=== PATIENT | male | born 1940 | race Hispanic/Latino ===

== ENCOUNTER 2018-01-26 09:34 | Inpatient (IN) | payer MEDICARE ==
[2018-01-26] VITALS (23 sets, daily range): BP systolic 88–155; BP diastolic 56–111
[~2018-01-26] VITALS: Ht 167.6 cm; Wt 78.9 kg
[~2018-01-26 09:34] MED LIST: ALPR2TAB7 PO; ATEN50TA PO; CARB1TAB20 PO; CLOPIDOGREL; CYAN100099 PO; ESOM40CA PO; MONT10TA24 PO; PEPTO BISMAL; PREG100C PO; SAW450CA7 PO; TERB250T51 PO; VESCEPA; [UNRECOGNIZED DRUG - OTHER]; [UNRECOGNIZED DRUG - OTHER]; benzonatate; donepezil; duloxetine; fluconazole; hydrocodone; loratadine; meloxicam; paroxetine; rena vite; tamsulosin; vitamin d3
[2018-01-26] MEDS ORDERED: IPRATROPIUM/ALBUTEROL SULFATE 3 ML SOLUTION IH ONE ×3 (09:45→12:02)
[2018-01-26 10:16] LABS: BASOPHILS % (AUTO) 0.2 % (0.0-5.0); HEMATOCRIT 45.8 % (42-54); LYMPHOCYTES % (AUTO) 5.9 % (21.0-51.0); MEAN CORPUSCULAR HEMOGLOBIN 29.6 pg (27.0-33.0); MEAN CORPUSCULAR HGB CONC 33.5 g/dL (32.0-36.0); MEAN CORPUSCULAR VOLUME 88.3 fL (79-99); MONOCYTES % (AUTO) 4.4 % (3.0-13.0); NEUTROPHILS % (AUTO) 89.5 % (40.0-77.0); PLATELET COUNT (AUTO) 290 K/uL (130-400); RED BLOOD CELL COUNT(AUTO) 5.19 MIL/uL (4.50-6.20); RED CELL DISTRIBUTION WIDTH 14.2 % (11.0-15.5); WHITE BLOOD COUNT (AUTO) 18.3 K/uL (4.8-10.8)
[2018-01-26 10:22] LABS: POTASSIUM 4.2 mmol/L (3.5-5.1)
[2018-01-26] MEDS ORDERED: METHYLPREDNISOLONE SOD SUCC 40MG/ML 1ML ONE ×2 (10:25→12:37)
[2018-01-26 10:27] LABS: BILIRUBIN,TOTAL 0.5 mg/dL (0.2-1.0); TOTAL PROTEIN, SERUM 8.5 g/dL (6.0-8.3)
[2018-01-26] MEDS ORDERED: ETOMIDATE 2 MG/ML 10 ML VIAL IVP ONE (12:00)
[2018-01-26] MEDS ORDERED: CEFTRIAXONE SODIUM 1 GM ONE (12:14)
[2018-01-26] MEDS ORDERED: SODIUM CHLORIDE 0.9% 100 ML IV ONE (12:14)
[2018-01-26] MEDS ORDERED: ENOXAPARIN SODIUM 40 MG/0.4 ML SYRINGE SQ ONE (12:37)
[2018-01-26] MEDS ORDERED: SODIUM CHLORIDE 0.9% 500ML 500 ML IV ONE (12:42)
[2018-01-26] MEDS ORDERED: AZITHROMYCIN 500MG+NS 250ML 250 ML IV ONE (12:47)
[2018-01-26] MEDS ORDERED: DEXTROSE 50%-WATER 50 ML DISP.SYRIN IV PRN (14:15)
[2018-01-26] MEDS ORDERED: GLUCAGON 1MG KIT 1 MG ML IM PRN (14:15)
[2018-01-26 14:51] LABS: ABG BASE EXCESS -11.1 mmol/L (-2.0-3.0); ABG HCO3 18.7 mmol/L (21.0-28.0); ABG OXYGEN SATURATION 98.6 % (95.0-99.0); ABG PCO2 57 mmHg (35-48)
[2018-01-26 15:07] LABS: APPEARANCE,URINE Cloudy (CLEAR); BILIRUBIN,URINE Negative (NEGATIVE); COLOR,URINE Yellow (YELLOW); GLUCOSE, URINE (UA) Negative (NEGATIVE); KETONES,URINE Negative (NEGATIVE); LEUKOCYTE ESTERASE ,URINE Small (NEGATIVE); NITRATE,URINE Negative (NEGATIVE); OCCULT BLOOD,URINE Nonhemolyzed Trace (NEGATIVE); PROTEIN,URINE POS 1+ (NEGATIVE)
[2018-01-26 15:32] LABS: BACTERIA,URINE Few /HPF (None Seen); MUCUS,URINE Few LPF (None Seen); RBC,URINE 0-1 /HPF (0-1)
[2018-01-26] MEDS ORDERED: ALBUTEROL SULFATE 0.083% 2.5 MG/3 ML INH IH ONE ×6 (15:37→15:38)
[2018-01-26 15:46] LABS: AMPHET/METH SCREEN,URINE NEGATIVE (NEGATIVE); BARBITURATE SCREEN, URINE NEGATIVE (NEGATIVE); BENZODIAZEPINES SCREEN,URINE POSITIVE (NEGATIVE); CANNABINOID SCREEN,URINE NEGATIVE (NEGATIVE); COCAINE SCREEN,URINE NEGATIVE (NEGATIVE); OPIATE SCREEN,URINE POSITIVE (NEGATIVE); PHENCYCLIDINE SCREEN,URINE NEGATIVE (NEGATIVE)
[2018-01-26] MEDS ORDERED: INSULIN R PO SS1 SQ SCH (16:30)
[2018-01-26] MEDS ORDERED: IPRATROPIUM/ALBUTEROL SULFATE 3 ML SOLUTION IH SCH (18:00)
[2018-01-26] MEDS ORDERED: MORPHINE SULFATE 2 MG/ML 1ML SYG IVP PRN (18:15)
[2018-01-26] MEDS ORDERED: ACETAMINOPHEN 325 MG TAB PO PRN (18:15)
[2018-01-26] MEDS ORDERED: ONDANSETRON HCL 4 MG/2 ML VIAL IVP PRN (18:15)
[2018-01-26] MEDS: IPRATROPIUM/ALBUTEROL SULFATE 3 ML SOLUTION IH SCH ×2 (18:20→21:43)
[2018-01-26] MEDS ORDERED: HYDRALAZINE HCL 20 MG/ML VIAL IV PRN (18:30)
[2018-01-26] MEDS ORDERED: CIPR-279 PO (18:33)
[2018-01-26] MEDS ORDERED: CLOP75TA32 PO (18:33)
[2018-01-26] MEDS ORDERED: CILO50TA PO (18:33)
[2018-01-26] MEDS ORDERED: ALPR-412 PO (18:33)
[2018-01-26] MEDS ORDERED: HYDR-4068 PO (18:33)
[2018-01-26] MEDS ORDERED: ESOM40CA54 PO (18:33)
[2018-01-26] MEDS ORDERED: ATEN25TA PO (18:33)
[2018-01-26] MEDS ORDERED: TAMS0.4C32 PO (18:33)
[2018-01-26] MEDS ORDERED: TRAM50TA4 PO (18:33)
[2018-01-26] MEDS ORDERED: AUD IH (18:33)
[2018-01-26] MEDS ORDERED: MIRA25TA PO (18:33)
[2018-01-26] MEDS ORDERED: SUCR1TAB2 PO (18:33)
[2018-01-26 18:49] LABS: ABG HCO3 20.5 mmol/L (21.0-28.0); ABG OXYGEN SATURATION 94.6 % (95.0-99.0); ABG PCO2 54 mmHg (35-48)
[2018-01-26] MEDS ORDERED: PROPOFOL 1000 MG/100 ML 100 ML IV ONE (18:53)
[2018-01-26] MEDS ORDERED: FENTANYL CITRATE PF 50 MCG/1 ML 2ML VIAL ONE (19:05)
[2018-01-26] MEDS ORDERED: MIDAZOLAM HCL 1 MG/ML 2ML VIAL ONE (19:05)
[2018-01-26] MEDS ORDERED: SODIUM CHLORIDE 0.9% 1000ML 2,000 ML IV ONE (19:06)
[2018-01-26] MEDS ORDERED: NOREPINEPHRINE 4MG/NS 250ML 250 ML IV PRN (19:30)
[2018-01-26 20:43] LABS: ABG HCO3 19.7 mmol/L (21.0-28.0); ABG OXYGEN SATURATION 95.9 % (95.0-99.0); ABG PCO2 44 mmHg (35-48)
[2018-01-26] MEDS ORDERED: INSULIN R PO SS2 SQ SCH (21:00)
[2018-01-26] MEDS: SODIUM CHLORIDE 0.9% 1000ML 1,000 ML IV SCH (21:38)
[2018-01-26] MEDS: CILOSTAZOL 100 MG TAB PO SCH (21:38)
[2018-01-26] MEDS: TAMSULOSIN HCL 0.4 MG CAP.ER.24H PO SCH (21:38)
[2018-01-27] VITALS (35 sets, daily range): BP systolic 83–146; BP diastolic 45–94
[2018-01-27] MEDS: INSULIN HUMULIN R 100 UNIT/ML 3ML SQ SCH ×5 (00:07→23:48)
[2018-01-27] MEDS ORDERED: METHYLPREDNISOLONE SOD SUCC 40MG/ML 1ML ONE (01:29)
[2018-01-27] MEDS: IPRATROPIUM/ALBUTEROL SULFATE 3 ML SOLUTION IH SCH (01:57)
[2018-01-27] MEDS: PROPOFOL 1000 MG/100 ML IV PRN ×2 (02:31→10:32)
[2018-01-27 03:44] LABS: HEMATOCRIT 36.7 % (42-54); MEAN CORPUSCULAR HGB CONC 34.4 g/dL (32.0-36.0); MEAN CORPUSCULAR VOLUME 87.2 fL (79-99); PLATELET COUNT (AUTO) 211 K/uL (130-400); RED CELL DISTRIBUTION WIDTH 14.3 % (11.0-15.5); WHITE BLOOD COUNT (AUTO) 13.7 K/uL (4.8-10.8)
[2018-01-27 04:00] LABS: CREATININE 1.8 mg/dL (0.5-1.5); PHOSPHORUS 2.8 mg/dL (2.5-4.9); POTASSIUM 4.2 mmol/L (3.5-5.1)
[2018-01-27 04:56] LABS: ABG BASE EXCESS -4.8 mmol/L (-2.0-3.0); ABG HCO3 20.3 mmol/L (21.0-28.0); ABG OXYGEN SATURATION 98.5 % (95.0-99.0); ABG PCO2 38 mmHg (35-48)
[2018-01-27 04:58] LABS: BAND NEUTROPHILS % (MANUAL) 19 % (0-2); LYMPHOCYTES % (MANUAL) 11 % (22-44); MAN.DIFF COMMENT-IMPRESSION MANUAL DIFFERENTIAL; MONOCYTES % (MANUAL) 7 % (2-9); SEGMENTED NEUTROPHILS % 63 % (40-70)
[2018-01-27 04:59] LABS: PLATELET MORPHOLOGY COMMENT ADEQUATE
[2018-01-27] MEDS: METHYLPREDNISOLONE SOD SUCC 125MG/2ML VIAL IVP SCH ×5 (06:10→23:32)
[2018-01-27] MEDS: IPRATROPIUM/ALBUTEROL SULFATE 3 ML SOLUTION IH PRN ×4 (06:44→18:20)
[2018-01-27] MEDS: CEFTRIAXONE SODIUM 2 GM VIAL IVP SCH (08:46)
[2018-01-27] MEDS: AZITHROMYCIN 500MG+NS 250ML 250 ML IV SCH (08:47)
[2018-01-27] MEDS: SODIUM CHLORIDE 0.9% 1000ML 1,000 ML IV SCH ×2 (08:50→15:37)
[2018-01-27] MEDS ORDERED: PANTOPRAZOLE SODIUM 40 MG TABLET.DR PO SCH (09:00)
[2018-01-27] MEDS: ATENOLOL 25 MG TABLET PO SCH (09:00)
[2018-01-27] MEDS ORDERED: PANTOPRAZOLE 40 MG/VIAL IVP SCH (09:00)
[2018-01-27] MEDS: CILOSTAZOL 100 MG TAB PO SCH ×2 (09:00→21:15)
[2018-01-27] MEDS: CLOPIDOGREL BISULFATE 75 MG TAB PO SCH (09:00)
[2018-01-27] MEDS: ENOXAPARIN SODIUM 40 MG/0.4 ML SYRINGE SQ SCH (09:08)
[2018-01-27] MEDS ORDERED: ICOS1CAP PO (09:57)
[2018-01-27] MEDS ORDERED: OLOP2.5D5 OP (09:57)
[2018-01-27] MEDS ORDERED: CYCL5.5D OP (09:57)
[2018-01-27] MEDS ORDERED: CEFTRIAXONE SODIUM 1 GM IVP SCH (12:00)
[2018-01-27] MEDS ORDERED: PHARMACY COMMUNICATION MISC SCH (14:30)
[2018-01-27] MEDS ORDERED: SODIUM CHLORIDE 0.9% 1000ML 1,000 ML IV SCH (14:30)
[2018-01-27] MEDS ORDERED: FENTANYL 2500MCG+NS 250ML 250 ML IV PRN (14:45)
[2018-01-27] MEDS: FENTANYL 2500MCG+NS 250ML 250 ML IV PRN (14:57)
[2018-01-27] MEDS: MIDAZOLAM 100MG-0.9% NS 100ML 100 ML IV PRN (15:28)
[2018-01-27] MEDS: TAMSULOSIN HCL 0.4 MG CAP.ER.24H PO SCH (21:00)
[2018-01-28] VITALS (30 sets, daily range): BP systolic 97–146; BP diastolic 43–94
[2018-01-28] MEDS: MIDAZOLAM 100MG-0.9% NS 100ML 100 ML IV PRN (01:43)
[2018-01-28 03:34] LABS: HEMATOCRIT 31.5 % (42-54); MEAN CORPUSCULAR HEMOGLOBIN 30.4 pg (27.0-33.0); MEAN CORPUSCULAR HGB CONC 34.8 g/dL (32.0-36.0); MEAN CORPUSCULAR VOLUME 87.4 fL (79-99); PLATELET COUNT (AUTO) 213 K/uL (130-400); RED CELL DISTRIBUTION WIDTH 14.8 % (11.0-15.5); WHITE BLOOD COUNT (AUTO) 9.4 K/uL (4.8-10.8)
[2018-01-28] MEDS: SODIUM CHLORIDE 0.9% 1000ML 1,000 ML IV SCH (03:39)
[2018-01-28 03:57] LABS: ALBUMIN 2.6 g/dL (3.5-5.0); BILIRUBIN,TOTAL 0.3 mg/dL (0.2-1.0); CREATININE 1.4 mg/dL (0.5-1.5); POTASSIUM 4.2 mmol/L (3.5-5.1); TOTAL PROTEIN, SERUM 5.7 g/dL (6.0-8.3)
[2018-01-28] MEDS: FENTANYL 2500MCG+NS 250ML 250 ML IV PRN (04:12)
[2018-01-28 05:30] LABS: ABG BASE EXCESS -2.3 mmol/L (-2.0-3.0); ABG HCO3 20.6 mmol/L (21.0-28.0); ABG OXYGEN SATURATION 96.9 % (95.0-99.0); ABG PCO2 31 mmHg (35-48)
[2018-01-28] MEDS: METHYLPREDNISOLONE SOD SUCC 125MG/2ML VIAL IVP SCH ×3 (05:41→17:39)
[2018-01-28] MEDS: INSULIN HUMULIN R 100 UNIT/ML 3ML SQ SCH ×4 (06:00→23:57)
[2018-01-28] MEDS: IPRATROPIUM/ALBUTEROL SULFATE 3 ML SOLUTION IH PRN ×3 (07:07→19:06)
[2018-01-28] MEDS: CLOPIDOGREL BISULFATE 75 MG TAB PO SCH (08:20)
[2018-01-28] MEDS: ATENOLOL 25 MG TABLET PO SCH ×2 (08:22→11:00)
[2018-01-28] MEDS: CILOSTAZOL 100 MG TAB PO SCH ×2 (08:23→21:52)
[2018-01-28] MEDS: FAMOTIDINE/PF 20 MG/2 ML VIAL IV SCH (08:29)
[2018-01-28] MEDS: AZITHROMYCIN 500MG+NS 250ML 250 ML IV SCH (08:39)
[2018-01-28] MEDS: CEFTRIAXONE SODIUM 2 GM VIAL IVP SCH (08:41)
[2018-01-28] MEDS: ENOXAPARIN SODIUM 40 MG/0.4 ML SYRINGE SQ SCH (08:46)
[2018-01-28] MEDS ORDERED: PANTOPRAZOLE SODIUM 40 MG TABLET.DR PO SCH (09:00)
[2018-01-28] MEDS ORDERED: PROPOFOL 1000 MG/100 ML IV PRN (11:45)
[2018-01-28 12:13] LABS: ABG BASE EXCESS -4.5 mmol/L (-2.0-3.0); ABG HCO3 21.4 mmol/L (21.0-28.0); ABG OXYGEN SATURATION 94.1 % (95.0-99.0); ABG PCO2 43 mmHg (35-48)
[2018-01-28] MEDS ORDERED: POTASSIUM PHOSPHATE 20 MMOL in SODIUM CHLORIDE 0.9% 250 ML IV SCH (16:30)
[2018-01-28] MEDS: PROPOFOL 1000 MG/100 ML 100 ML IV PRN (21:52)
[2018-01-28] MEDS: TAMSULOSIN HCL 0.4 MG CAP.ER.24H PO SCH (21:52)
[2018-01-29] VITALS (24 sets, daily range): BP systolic 104–160; BP diastolic 44–82
[2018-01-29] MEDS: METHYLPREDNISOLONE SOD SUCC 125MG/2ML VIAL IVP SCH ×5 (00:05→23:12)
[2018-01-29 03:55] LABS: BASOPHILS % (AUTO) 0.1 % (0.0-5.0); LYMPHOCYTES % (AUTO) 7.6 % (21.0-51.0); MEAN CORPUSCULAR HEMOGLOBIN 29.5 pg (27.0-33.0); MEAN CORPUSCULAR HGB CONC 33.5 g/dL (32.0-36.0); MONOCYTES % (AUTO) 2.8 % (3.0-13.0); NEUTROPHILS % (AUTO) 89.5 % (40.0-77.0); NUCLEATED RED BLOOD CELLS 0.1 % (0.0-0.19); PLATELET COUNT (AUTO) 180 K/uL (130-400); RED BLOOD CELL COUNT(AUTO) 3.52 MIL/uL (4.50-6.20); RED CELL DISTRIBUTION WIDTH 14.6 % (11.0-15.5); WHITE BLOOD COUNT (AUTO) 7.7 K/uL (4.8-10.8)
[2018-01-29 04:09] LABS: CREATININE 1.2 mg/dL (0.5-1.5); MAGNESIUM 2.1 mg/dL (1.80-2.40); PHOSPHORUS 2.8 mg/dL (2.5-4.9); POTASSIUM 3.8 mmol/L (3.5-5.1)
[2018-01-29] MEDS: SODIUM CHLORIDE 0.9% 1000ML 1,000 ML IV SCH ×3 (04:28→19:21)
[2018-01-29] MEDS: INSULIN HUMULIN R 100 UNIT/ML 3ML SQ SCH ×3 (06:00→17:26)
[2018-01-29] MEDS: PROPOFOL 1000 MG/100 ML 100 ML IV PRN ×4 (06:38→21:14)
[2018-01-29] MEDS: IPRATROPIUM/ALBUTEROL SULFATE 3 ML SOLUTION IH PRN ×4 (06:51→19:31)
[2018-01-29 08:08] LABS: ABG BASE EXCESS -1.7 mmol/L (-2.0-3.0); ABG HCO3 21.5 mmol/L (21.0-28.0); ABG OXYGEN SATURATION 93.1 % (95.0-99.0); ABG PCO2 33 mmHg (35-48)
[2018-01-29] MEDS: FAMOTIDINE/PF 20 MG/2 ML VIAL IV SCH (08:46)
[2018-01-29] MEDS: CILOSTAZOL 100 MG TAB PO SCH ×2 (08:46→21:15)
[2018-01-29] MEDS: AZITHROMYCIN 500MG+NS 250ML 250 ML IV SCH (08:46)
[2018-01-29] MEDS: CLOPIDOGREL BISULFATE 75 MG TAB PO SCH (08:46)
[2018-01-29] MEDS: CEFTRIAXONE SODIUM 2 GM VIAL IVP SCH (08:46)
[2018-01-29] MEDS: ATENOLOL 25 MG TABLET PO SCH (08:47)
[2018-01-29] MEDS: ENOXAPARIN SODIUM 40 MG/0.4 ML SYRINGE SQ SCH (08:47)
[2018-01-29] MEDS ORDERED: IOHEXOL 350 MG/ML 100ML INFUS..BTL IV ONE (14:50)
[2018-01-29] MEDS: TAMSULOSIN HCL 0.4 MG CAP.ER.24H PO SCH (21:14)
[2018-01-30] VITALS (23 sets, daily range): BP systolic 101–163; BP diastolic 60–86
[2018-01-30] MEDS: IPRATROPIUM/ALBUTEROL SULFATE 3 ML SOLUTION IH PRN ×6 (02:02→22:09)
[2018-01-30] MEDS: PROPOFOL 1000 MG/100 ML 100 ML IV PRN ×3 (02:39→19:22)
[2018-01-30 03:53] LABS: HEMATOCRIT 33.7 % (42-54); MEAN CORPUSCULAR HGB CONC 34.2 g/dL (32.0-36.0); MEAN CORPUSCULAR VOLUME 87.7 fL (79-99); NUCLEATED RED BLOOD CELLS 0.2 % (0.0-0.19); PLATELET COUNT (AUTO) 215 K/uL (130-400); RED BLOOD CELL COUNT(AUTO) 3.84 MIL/uL (4.50-6.20); RED CELL DISTRIBUTION WIDTH 14.3 % (11.0-15.5)
[2018-01-30 04:12] LABS: CREATININE 1.1 mg/dL (0.5-1.5); MAGNESIUM 2.3 mg/dL (1.80-2.40); PHOSPHORUS 2.7 mg/dL (2.5-4.9); POTASSIUM 3.3 mmol/L (3.5-5.1)
[2018-01-30] MEDS: INSULIN HUMULIN R 100 UNIT/ML 3ML SQ SCH ×5 (06:00→23:44)
[2018-01-30] MEDS: METHYLPREDNISOLONE SOD SUCC 125MG/2ML VIAL IVP SCH ×4 (06:03→23:36)
[2018-01-30] MEDS ORDERED: LIDOCAINE HCL-MPF 1% 2ML VIAL IVP PRN ×2 (06:45)
[2018-01-30] MEDS ORDERED: POTASSIUM CHLORIDE 10% ELIXIR 20 MEQ/15 ML UDCUP PO PRN (06:45)
[2018-01-30] MEDS ORDERED: POTASSIUM CHLORIDE 20MEQ/100ML 100 ML IV PRN (06:45)
[2018-01-30 07:16] LABS: ABG BASE EXCESS -1.4 mmol/L (-2.0-3.0); ABG HCO3 21.4 mmol/L (21.0-28.0); ABG OXYGEN SATURATION 94.9 % (95.0-99.0); ABG PCO2 31 mmHg (35-48)
[2018-01-30] MEDS: ATENOLOL 25 MG TABLET PO SCH (09:00)
[2018-01-30] MEDS: SODIUM CHLORIDE 0.9% 1000ML 1,000 ML IV SCH ×2 (09:01→23:36)
[2018-01-30] MEDS: CILOSTAZOL 100 MG TAB PO SCH ×2 (11:13→21:34)
[2018-01-30] MEDS: AZITHROMYCIN 500MG+NS 250ML 250 ML IV SCH (11:13)
[2018-01-30] MEDS: CLOPIDOGREL BISULFATE 75 MG TAB PO SCH (11:13)
[2018-01-30] MEDS: CEFTRIAXONE SODIUM 2 GM VIAL IVP SCH (11:13)
[2018-01-30] MEDS: FAMOTIDINE/PF 20 MG/2 ML VIAL IV SCH (11:13)
[2018-01-30] MEDS: ENOXAPARIN SODIUM 40 MG/0.4 ML SYRINGE SQ SCH (11:14)
[2018-01-30 17:59] LABS: OCCULT BLOOD STOOL SINGLE ONLY POSITIVE (NEGATIVE)
[2018-01-30 18:40] LABS: CREATININE 1.2 mg/dL (0.5-1.5); MAGNESIUM 2.3 mg/dL (1.80-2.40); PHOSPHORUS 2.5 mg/dL (2.5-4.9); POTASSIUM 3.3 mmol/L (3.5-5.1)
[2018-01-30] MEDS: TAMSULOSIN HCL 0.4 MG CAP.ER.24H PO SCH (21:00)
[2018-01-31] VITALS (23 sets, daily range): BP systolic 99–173; BP diastolic 56–116
[2018-01-31] MEDS: PROPOFOL 1000 MG/100 ML 100 ML IV PRN ×3 (00:14→08:46)
[2018-01-31] MEDS: IPRATROPIUM/ALBUTEROL SULFATE 3 ML SOLUTION IH PRN ×2 (02:42→06:36)
[2018-01-31] MEDS: INSULIN HUMULIN R 100 UNIT/ML 3ML SQ SCH ×4 (06:00→23:51)
[2018-01-31] MEDS: METHYLPREDNISOLONE SOD SUCC 125MG/2ML VIAL IVP SCH ×3 (06:30→19:52)
[2018-01-31] MEDS: ENOXAPARIN SODIUM 40 MG/0.4 ML SYRINGE SQ SCH (08:48)
[2018-01-31] MEDS: CLOPIDOGREL BISULFATE 75 MG TAB PO SCH (08:48)
[2018-01-31] MEDS: ATENOLOL 25 MG TABLET PO SCH (08:48)
[2018-01-31] MEDS: CILOSTAZOL 100 MG TAB PO SCH ×2 (08:49→21:01)
[2018-01-31] MEDS: CEFTRIAXONE SODIUM 2 GM VIAL IVP SCH (08:49)
[2018-01-31] MEDS: FAMOTIDINE/PF 20 MG/2 ML VIAL IV SCH (08:49)
[2018-01-31] MEDS: AZITHROMYCIN 500MG+NS 250ML 250 ML IV SCH ×2 (08:50→09:01)
[2018-01-31 10:57] LABS: ABG BASE EXCESS 2.3 mmol/L (-2.0-3.0); ABG HCO3 24.9 mmol/L (21.0-28.0); ABG OXYGEN SATURATION 96.9 % (95.0-99.0); ABG PCO2 33 mmHg (35-48)
[2018-01-31 11:00] LABS: BASOPHILS % (AUTO) 0.2 % (0.0-5.0); HEMATOCRIT 37.3 % (42-54); LYMPHOCYTES % (AUTO) 2.9 % (21.0-51.0); MEAN CORPUSCULAR HEMOGLOBIN 29.2 pg (27.0-33.0); MEAN CORPUSCULAR HGB CONC 33.5 g/dL (32.0-36.0); MEAN CORPUSCULAR VOLUME 87.1 fL (79-99); MONOCYTES % (AUTO) 5.5 % (3.0-13.0); NEUTROPHILS % (AUTO) 91.4 % (40.0-77.0); NUCLEATED RED BLOOD CELLS 0.2 % (0.0-0.19); PLATELET COUNT (AUTO) 221 K/uL (130-400); RED BLOOD CELL COUNT(AUTO) 4.29 MIL/uL (4.50-6.20); RED CELL DISTRIBUTION WIDTH 14.2 % (11.0-15.5); WHITE BLOOD COUNT (AUTO) 10.8 K/uL (4.8-10.8)
[2018-01-31 11:18] LABS: CREATININE 1.1 mg/dL (0.5-1.5); MAGNESIUM 2.2 mg/dL (1.80-2.40); PHOSPHORUS 2.5 mg/dL (2.5-4.9)
[2018-01-31] MEDS: POTASSIUM CHLORIDE 20MEQ/100ML 100 ML IV PRN (11:34)
[2018-01-31 12:42] LABS: ABG BASE EXCESS 2.4 mmol/L (-2.0-3.0); ABG HCO3 24.1 mmol/L (21.0-28.0); ABG OXYGEN SATURATION 92.3 % (95.0-99.0); ABG PCO2 30 mmHg (35-48)
[2018-01-31] MEDS ORDERED: FUROSEMIDE 10 MG/ML 4ML VIAL ONE (12:48)
[2018-01-31] MEDS: LACTOBACILLUS RHAMNOSUS GG 1 EACH CAP.SPRINK PO SCH ×2 (13:04→21:02)
[2018-01-31] MEDS ORDERED: FUROSEMIDE 10 MG/ML 4ML VIAL IV SCH (14:40)
[2018-01-31] MEDS ORDERED: HALOPERIDOL LACTATE 5 MG/ML VIAL ONE (15:21)
[2018-01-31] MEDS ORDERED: HALOPERIDOL LACTATE 5 MG/ML VIAL IM PRN (15:30)
[2018-01-31] MEDS: FUROSEMIDE 10 MG/ML 2ML VIAL IV SCH (15:45)
[2018-01-31] MEDS ORDERED: IPRATROPIUM/ALBUTEROL SULFATE 3 ML SOLUTION IH SCH ×2 (16:15→16:34)
[2018-01-31] MEDS ORDERED: ZIPRASIDONE MESYLATE 20 MG/VIAL IM PRN (17:45)
[2018-01-31] MEDS: IPRATROPIUM/ALBUTEROL SULFATE 3 ML SOLUTION IH SCH ×2 (18:49→23:43)
[2018-01-31] MEDS: TAMSULOSIN HCL 0.4 MG CAP.ER.24H PO SCH (21:01)
[2018-02-01] VITALS (17 sets, daily range): BP systolic 100–145; BP diastolic 58–87
[2018-02-01 03:37] LABS: HEMATOCRIT 38.6 % (42-54); MEAN CORPUSCULAR HEMOGLOBIN 29.9 pg (27.0-33.0); MEAN CORPUSCULAR VOLUME 87.9 fL (79-99); NUCLEATED RED BLOOD CELLS 0.1 % (0.0-0.19); PLATELET COUNT (AUTO) 248 K/uL (130-400); RED BLOOD CELL COUNT(AUTO) 4.39 MIL/uL (4.50-6.20); RED CELL DISTRIBUTION WIDTH 14.9 % (11.0-15.5); WHITE BLOOD COUNT (AUTO) 10.9 K/uL (4.8-10.8)
[2018-02-01 03:53] LABS: CREATININE 1.5 mg/dL (0.5-1.5); MAGNESIUM 2.4 mg/dL (1.80-2.40); POTASSIUM 3.1 mmol/L (3.5-5.1)
[2018-02-01] MEDS: METHYLPREDNISOLONE SOD SUCC 125MG/2ML VIAL IVP SCH ×3 (04:21→20:33)
[2018-02-01] MEDS: FUROSEMIDE 10 MG/ML 2ML VIAL IV SCH ×2 (04:21→15:01)
[2018-02-01 04:40] LABS: ABG BASE EXCESS 6.1 mmol/L (-2.0-3.0); ABG HCO3 29.1 mmol/L (21.0-28.0); ABG OXYGEN SATURATION 94.4 % (95.0-99.0); ABG PCO2 36 mmHg (35-48)
[2018-02-01] MEDS: POTASSIUM CHLORIDE 20MEQ/100ML 100 ML IV PRN ×3 (05:20→15:01)
[2018-02-01] MEDS: INSULIN HUMULIN R 100 UNIT/ML 3ML SQ SCH ×4 (06:00→20:42)
[2018-02-01] MEDS: IPRATROPIUM/ALBUTEROL SULFATE 3 ML SOLUTION IH SCH ×4 (06:11→23:16)
[2018-02-01] MEDS: LACTOBACILLUS RHAMNOSUS GG 1 EACH CAP.SPRINK PO SCH ×3 (09:15→20:32)
[2018-02-01] MEDS: ENOXAPARIN SODIUM 40 MG/0.4 ML SYRINGE SQ SCH (09:16)
[2018-02-01] MEDS: CEFTRIAXONE SODIUM 2 GM VIAL IVP SCH (09:16)
[2018-02-01] MEDS: FAMOTIDINE/PF 20 MG/2 ML VIAL IV SCH (09:17)
[2018-02-01] MEDS: CLOPIDOGREL BISULFATE 75 MG TAB PO SCH (09:17)
[2018-02-01] MEDS: ATENOLOL 25 MG TABLET PO SCH (09:17)
[2018-02-01] MEDS: CILOSTAZOL 100 MG TAB PO SCH ×2 (09:18→20:33)
[2018-02-01] MEDS: HYDROCODONE/ACETAMINOPHEN 5/325 MG TAB PO PRN (14:06)
[2018-02-01] MEDS: TAMSULOSIN HCL 0.4 MG CAP.ER.24H PO SCH (20:32)
[2018-02-02 03:34] VITALS: BP 139/69
[2018-02-02 03:47] LABS: HEMATOCRIT 38.2 % (42-54); MEAN CORPUSCULAR HEMOGLOBIN 29.4 pg (27.0-33.0); MEAN CORPUSCULAR HGB CONC 33.5 g/dL (32.0-36.0); MEAN CORPUSCULAR VOLUME 87.8 fL (79-99); NUCLEATED RED BLOOD CELLS 0.1 % (0.0-0.19); PLATELET COUNT (AUTO) 221 K/uL (130-400); RED BLOOD CELL COUNT(AUTO) 4.34 MIL/uL (4.50-6.20); RED CELL DISTRIBUTION WIDTH 14.5 % (11.0-15.5)
[2018-02-02 04:04] LABS: CREATININE 1.4 mg/dL (0.5-1.5); MAGNESIUM 2.7 mg/dL (1.80-2.40); POTASSIUM 3.7 mmol/L (3.5-5.1)
[2018-02-02] MEDS: METHYLPREDNISOLONE SOD SUCC 125MG/2ML VIAL IVP SCH ×3 (04:24→20:58)
[2018-02-02] MEDS: FUROSEMIDE 10 MG/ML 2ML VIAL IV SCH ×2 (04:25→16:12)
[2018-02-02] MEDS: POTASSIUM CHLORIDE 20 MEQ ERTAB PO PRN ×2 (04:29→16:13)
[2018-02-02] MEDS: INSULIN HUMULIN R 100 UNIT/ML 3ML SQ SCH ×4 (06:44→20:52)
[2018-02-02] MEDS: IPRATROPIUM/ALBUTEROL SULFATE 3 ML SOLUTION IH SCH ×4 (06:49→23:29)
[2018-02-02 07:19] VITALS: BP 136/81
[2018-02-02] MEDS: CILOSTAZOL 100 MG TAB PO SCH ×2 (08:26→20:59)
[2018-02-02] MEDS: ATENOLOL 25 MG TABLET PO SCH (08:26)
[2018-02-02] MEDS: FAMOTIDINE/PF 20 MG/2 ML VIAL IV SCH (08:26)
[2018-02-02] MEDS: CEFTRIAXONE SODIUM 2 GM VIAL IVP SCH (08:26)
[2018-02-02] MEDS: CLOPIDOGREL BISULFATE 75 MG TAB PO SCH (08:26)
[2018-02-02] MEDS: LACTOBACILLUS RHAMNOSUS GG 1 EACH CAP.SPRINK PO SCH ×3 (08:26→20:58)
[2018-02-02] MEDS: ENOXAPARIN SODIUM 40 MG/0.4 ML SYRINGE SQ SCH (08:26)
[2018-02-02 10:50] VITALS: BP 154/83
[2018-02-02 16:17] VITALS: BP 138/75
[2018-02-02 17:22] LABS: APPEARANCE,URINE Clear (CLEAR); BILIRUBIN,URINE Negative (NEGATIVE); COLOR,URINE Yellow (YELLOW); GLUCOSE, URINE (UA) Negative (NEGATIVE); KETONES,URINE Negative (NEGATIVE); LEUKOCYTE ESTERASE ,URINE Negative (NEGATIVE); NITRATE,URINE Negative (NEGATIVE); OCCULT BLOOD,URINE Negative (NEGATIVE); PH,URINE 7.5 (5.0-8.0); PROTEIN,URINE Negative (NEGATIVE); UROBILINOGEN,URINE 0.2 mg/dL (0.2-1.0)
[2018-02-02 19:36] VITALS: BP 146/89
[2018-02-02] MEDS: TAMSULOSIN HCL 0.4 MG CAP.ER.24H PO SCH (20:58)
[2018-02-02 23:35] VITALS: BP 139/79
[2018-02-03] MEDS: FUROSEMIDE 10 MG/ML 2ML VIAL IV SCH ×2 (03:26→20:10)
[2018-02-03 03:47] VITALS: BP 154/92
[2018-02-03] MEDS: IPRATROPIUM/ALBUTEROL SULFATE 3 ML SOLUTION IH SCH ×3 (06:27→19:00)
[2018-02-03] MEDS: INSULIN HUMULIN R 100 UNIT/ML 3ML SQ SCH ×4 (06:53→21:00)
[2018-02-03 07:13] VITALS: BP 115/61
[2018-02-03] MEDS: FAMOTIDINE/PF 20 MG/2 ML VIAL IV SCH (08:43)
[2018-02-03] MEDS: CEFTRIAXONE SODIUM 2 GM VIAL IVP SCH (08:43)
[2018-02-03] MEDS: METHYLPREDNISOLONE SOD SUCC 125MG/2ML VIAL IVP SCH ×2 (08:43→21:03)
[2018-02-03] MEDS: CLOPIDOGREL BISULFATE 75 MG TAB PO SCH (08:44)
[2018-02-03] MEDS: ATENOLOL 25 MG TABLET PO SCH (08:44)
[2018-02-03] MEDS: LACTOBACILLUS RHAMNOSUS GG 1 EACH CAP.SPRINK PO SCH ×3 (08:44→21:03)
[2018-02-03] MEDS: CILOSTAZOL 100 MG TAB PO SCH ×2 (08:44→21:03)
[2018-02-03] MEDS: ENOXAPARIN SODIUM 40 MG/0.4 ML SYRINGE SQ SCH (08:45)
[2018-02-03 11:11] VITALS: BP 110/64
[2018-02-03] MEDS ORDERED: TAMSULOSIN HCL 0.4 MG CAP.ER.24H PO ONE (14:30)
[2018-02-03 16:10] VITALS: BP 120/78
[2018-02-03 19:12] LABS: HEMATOCRIT 42.9 % (42-54); MEAN CORPUSCULAR HEMOGLOBIN 29.3 pg (27.0-33.0); MEAN CORPUSCULAR HGB CONC 33.2 g/dL (32.0-36.0); MEAN CORPUSCULAR VOLUME 88.3 fL (79-99); PLATELET COUNT (AUTO) 268 K/uL (130-400); RED BLOOD CELL COUNT(AUTO) 4.86 MIL/uL (4.50-6.20); RED CELL DISTRIBUTION WIDTH 14.6 % (11.0-15.5); WHITE BLOOD COUNT (AUTO) 14.2 K/uL (4.8-10.8)
[2018-02-03 19:22] LABS: CREATININE 1.4 mg/dL (0.5-1.5); POTASSIUM 4.2 mmol/L (3.5-5.1)
[2018-02-03 19:35] VITALS: BP 130/75
[2018-02-03] MEDS: TAMSULOSIN HCL 0.4 MG CAP.ER.24H PO SCH (21:03)
[2018-02-03 23:14] VITALS: BP 109/65
[2018-02-04] MEDS: IPRATROPIUM/ALBUTEROL SULFATE 3 ML SOLUTION IH SCH ×5 (00:16→23:06)
[2018-02-04 03:34] VITALS: BP 121/79
[2018-02-04] MEDS: FUROSEMIDE 10 MG/ML 2ML VIAL IV SCH ×2 (05:15→15:45)
[2018-02-04] MEDS: INSULIN HUMULIN R 100 UNIT/ML 3ML SQ SCH ×4 (05:59→21:00)
[2018-02-04 07:00] VITALS: BP 120/74
[2018-02-04] MEDS: ENOXAPARIN SODIUM 40 MG/0.4 ML SYRINGE SQ SCH (08:45)
[2018-02-04] MEDS: ATENOLOL 25 MG TABLET PO SCH (08:46)
[2018-02-04] MEDS: CILOSTAZOL 100 MG TAB PO SCH ×2 (08:46→20:05)
[2018-02-04] MEDS: LACTOBACILLUS RHAMNOSUS GG 1 EACH CAP.SPRINK PO SCH ×3 (08:46→20:06)
[2018-02-04] MEDS: CLOPIDOGREL BISULFATE 75 MG TAB PO SCH (08:46)
[2018-02-04] MEDS: FAMOTIDINE/PF 20 MG/2 ML VIAL IV SCH (08:47)
[2018-02-04] MEDS: CEFTRIAXONE SODIUM 2 GM VIAL IVP SCH (08:47)
[2018-02-04] MEDS: METHYLPREDNISOLONE SOD SUCC 125MG/2ML VIAL IVP SCH ×2 (09:26→20:05)
[2018-02-04 11:00] VITALS: BP 122/73
[2018-02-04] MEDS: ZOSYN 3.375GM+NS 50ML 50 ML IV SCH ×2 (13:17→20:05)
[2018-02-04] MEDS ORDERED: RENAL DOSE IV SCH (15:45)
[2018-02-04] MEDS: SODIUM CHLORIDE 0.9% 1000ML 1,000 ML IV SCH (15:45)
[2018-02-04 15:53] LABS: MEAN CORPUSCULAR HEMOGLOBIN 28.3 pg (27.0-33.0); MEAN CORPUSCULAR VOLUME 88.4 fL (79-99); NUCLEATED RED BLOOD CELLS 0.1 % (0.0-0.19); PLATELET COUNT (AUTO) 235 K/uL (130-400); RED BLOOD CELL COUNT(AUTO) 5.09 MIL/uL (4.50-6.20); RED CELL DISTRIBUTION WIDTH 14.5 % (11.0-15.5); WHITE BLOOD COUNT (AUTO) 17.9 K/uL (4.8-10.8)
[2018-02-04 16:00] VITALS: BP 123/72
[2018-02-04] MEDS ORDERED: VANCOMYCIN 1.5 GM in SODIUM CHLORIDE 0.9% 250 ML IV ONE (16:00)
[2018-02-04 16:01] LABS: CREATININE 1.5 mg/dL (0.5-1.5); POTASSIUM 3.7 mmol/L (3.5-5.1)
[2018-02-04] MEDS ORDERED: VANCOMYCIN PROTOCOL PER PHARMACY IV SCH (17:30)
[2018-02-04 19:50] VITALS: BP 135/80
[2018-02-04] MEDS: TAMSULOSIN HCL 0.4 MG CAP.ER.24H PO SCH (20:05)
[2018-02-04 23:52] VITALS: BP 130/72
[2018-02-05] MEDS: FUROSEMIDE 10 MG/ML 2ML VIAL IV SCH ×2 (03:56→15:15)
[2018-02-05 04:14] VITALS: BP 128/75
[2018-02-05] MEDS: SODIUM CHLORIDE 0.9% 1000ML 1,000 ML IV SCH (05:05)
[2018-02-05] MEDS ORDERED: SODIUM CHLORIDE 0.9% 50 ML IV ONE (05:38)
[2018-02-05] MEDS: ZOSYN 3.375GM+NS 50ML 50 ML IV SCH ×3 (05:39→20:05)
[2018-02-05] MEDS: IPRATROPIUM/ALBUTEROL SULFATE 3 ML SOLUTION IH SCH ×4 (06:00→23:18)
[2018-02-05] MEDS: INSULIN HUMULIN R 100 UNIT/ML 3ML SQ SCH ×4 (06:16→21:00)
[2018-02-05 08:00] VITALS: BP 131/79
[2018-02-05] MEDS: ENOXAPARIN SODIUM 40 MG/0.4 ML SYRINGE SQ SCH (08:08)
[2018-02-05] MEDS: CLOPIDOGREL BISULFATE 75 MG TAB PO SCH (08:08)
[2018-02-05] MEDS: ATENOLOL 25 MG TABLET PO SCH (08:08)
[2018-02-05] MEDS: LACTOBACILLUS RHAMNOSUS GG 1 EACH CAP.SPRINK PO SCH ×3 (08:08→20:06)
[2018-02-05] MEDS: METHYLPREDNISOLONE SOD SUCC 125MG/2ML VIAL IVP SCH ×2 (08:08→20:06)
[2018-02-05] MEDS: CILOSTAZOL 100 MG TAB PO SCH ×2 (08:08→20:06)
[2018-02-05] MEDS: FAMOTIDINE/PF 20 MG/2 ML VIAL IV SCH (08:09)
[2018-02-05 11:00] VITALS: BP 131/79
[2018-02-05 16:00] VITALS: BP 140/86
[2018-02-05 19:35] VITALS: BP 113/81
[2018-02-05] MEDS: TAMSULOSIN HCL 0.4 MG CAP.ER.24H PO SCH (20:06)
[2018-02-05 23:39] VITALS: BP 123/77
[2018-02-06 03:55] VITALS: BP 117/88
[2018-02-06] MEDS: FUROSEMIDE 10 MG/ML 2ML VIAL IV SCH ×2 (03:56→15:35)
[2018-02-06] MEDS: ZOSYN 3.375GM+NS 50ML 50 ML IV SCH ×3 (04:48→21:45)
[2018-02-06] MEDS: INSULIN HUMULIN R 100 UNIT/ML 3ML SQ SCH ×4 (05:42→21:00)
[2018-02-06] MEDS: IPRATROPIUM/ALBUTEROL SULFATE 3 ML SOLUTION IH SCH ×4 (05:51→23:15)
[2018-02-06 08:00] VITALS: BP 122/82
[2018-02-06] MEDS: LACTOBACILLUS RHAMNOSUS GG 1 EACH CAP.SPRINK PO SCH ×3 (08:24→21:46)
[2018-02-06] MEDS: ATENOLOL 25 MG TABLET PO SCH (08:25)
[2018-02-06] MEDS: CILOSTAZOL 100 MG TAB PO SCH ×2 (08:26→21:46)
[2018-02-06] MEDS: FAMOTIDINE/PF 20 MG/2 ML VIAL IV SCH (08:26)
[2018-02-06] MEDS: METHYLPREDNISOLONE SOD SUCC 125MG/2ML VIAL IVP SCH ×2 (08:26→21:54)
[2018-02-06] MEDS: CLOPIDOGREL BISULFATE 75 MG TAB PO SCH (08:26)
[2018-02-06] MEDS: ENOXAPARIN SODIUM 40 MG/0.4 ML SYRINGE SQ SCH (08:28)
[2018-02-06 11:16] VITALS: BP 111/64
[2018-02-06 16:17] VITALS: BP 127/75
[2018-02-06] MEDS: VANCOMYCIN 1GM+NS 250ML 250 ML IV SCH (16:41)
[2018-02-06 19:19] VITALS: BP 95/53
[2018-02-06] MEDS: TAMSULOSIN HCL 0.4 MG CAP.ER.24H PO SCH (21:46)
[2018-02-06] MEDS: HYDROCODONE/ACETAMINOPHEN 5/325 MG TAB PO PRN (21:48)
[2018-02-06 23:23] VITALS: BP 114/76
[2018-02-07 03:08] VITALS: BP 114/70
[2018-02-07] MEDS: FUROSEMIDE 10 MG/ML 2ML VIAL IV SCH ×2 (03:29→15:57)
[2018-02-07] MEDS: ZOSYN 3.375GM+NS 50ML 50 ML IV SCH ×2 (04:13→13:59)
[2018-02-07] MEDS: INSULIN HUMULIN R 100 UNIT/ML 3ML SQ SCH ×3 (05:38→16:30)
[2018-02-07] MEDS: IPRATROPIUM/ALBUTEROL SULFATE 3 ML SOLUTION IH SCH ×2 (05:55→10:55)
[2018-02-07 07:31] VITALS: BP 124/82
[2018-02-07] MEDS: LACTOBACILLUS RHAMNOSUS GG 1 EACH CAP.SPRINK PO SCH ×2 (08:16→13:55)
[2018-02-07] MEDS: CLOPIDOGREL BISULFATE 75 MG TAB PO SCH (08:16)
[2018-02-07] MEDS: CILOSTAZOL 100 MG TAB PO SCH (08:16)
[2018-02-07] MEDS: ATENOLOL 25 MG TABLET PO SCH (08:17)
[2018-02-07] MEDS: FAMOTIDINE/PF 20 MG/2 ML VIAL IV SCH (08:17)
[2018-02-07] MEDS: METHYLPREDNISOLONE SOD SUCC 125MG/2ML VIAL IVP SCH (08:17)
[2018-02-07] MEDS: ENOXAPARIN SODIUM 40 MG/0.4 ML SYRINGE SQ SCH (08:17)
[2018-02-07 11:26] VITALS: BP 110/61
[2018-02-07 13:41] LABS: HEMATOCRIT 48.2 % (42-54); MEAN CORPUSCULAR HEMOGLOBIN 29.3 pg (27.0-33.0); MEAN CORPUSCULAR HGB CONC 32.8 g/dL (32.0-36.0); MEAN CORPUSCULAR VOLUME 89.2 fL (79-99); PLATELET COUNT (AUTO) 247 K/uL (130-400); RED BLOOD CELL COUNT(AUTO) 5.41 MIL/uL (4.50-6.20); RED CELL DISTRIBUTION WIDTH 13.9 % (11.0-15.5); WHITE BLOOD COUNT (AUTO) 18.6 K/uL (4.8-10.8)
[2018-02-07 13:57] LABS: CREATININE 1.6 mg/dL (0.5-1.5); POTASSIUM 3.5 mmol/L (3.5-5.1)
[2018-02-07] MEDS: POTASSIUM CHLORIDE 20 MEQ ERTAB PO PRN (15:58)
[2018-02-07] MEDS: VANCOMYCIN 1GM+NS 250ML 250 ML IV SCH (15:58)
[2018-02-07 16:19] VITALS: BP 131/75
== END 2018-02-07 18:30 | DRG 207 ==
LOC: EDH 09:34 → EDHIP 12:07 → 2CH 17:10 → 2AH 02-01 18:29
PROVIDERS: ADMIT Internal Medicine; ATTEND Internal Medicine
PROC: 0BH18EZ Insertion of Endotracheal Airway into Trachea, Via Natural or Artificial Opening Endoscopic (ICD-10-PCS; principal; 2018-01-26)
PROC: 5A1955Z Respiratory Ventilation, Greater than 96 Consecutive Hours (ICD-10-PCS; 2018-01-26)
DX: J45.41 Moderate persistent asthma with (acute) exacerbation (principal); J96.22 Acute and chronic respiratory failure with hypercapnia; G92 Toxic encephalopathy; J96.21 Acute and chronic respiratory failure with hypoxia; N17.9 Acute kidney failure, unspecified; J44.1 Chronic obstructive pulmonary disease with (acute) exacerbation; J98.11 Atelectasis; E87.2 Acidosis; I50.30 Unspecified diastolic (congestive) heart failure; N39.0 Urinary tract infection, site not specified; E78.5 Hyperlipidemia, unspecified; K21.9 Gastro-esophageal reflux disease without esophagitis; E66.01 Morbid (severe) obesity due to excess calories; Z68.28 Body mass index [BMI] 28.0-28.9, adult; E11.9 Type 2 diabetes mellitus without complications; E86.9 Volume depletion, unspecified; F41.9 Anxiety disorder, unspecified; I07.1 Rheumatic tricuspid insufficiency; I11.0 Hypertensive heart disease with heart failure; I25.10 Atherosclerotic heart disease of native coronary artery without angina pectoris; I48.0 Paroxysmal atrial fibrillation; N40.0 Benign prostatic hyperplasia without lower urinary tract symptoms; Z87.891 Personal history of nicotine dependence; Z95.1 Presence of aortocoronary bypass graft; Z95.5 Presence of coronary angioplasty implant and graft
CPT/HCPCS: 31500; 36415; 36600; 70450; 71045; 71275; 76770; 80048; 80053; 80202; 80305; 81001; 81003; 82270; 82435; 82803; 82947; 82948; 83605; 83735; 84100; 84132; 84295; 84484; 85018; 85025; 85027; 85378; 87040; 87071; 87205; 87324; 92610; 93005; 93306; 93970; 94002; 94003; 94640; 94644; 94660; 94664; 94667; 94668; 97039; 99291; A4218; A4344; C9113; J0456; J0696; J1630; J1650; J1815; J1940; J2250; J2543; J2704; J2920; J2930; J3010; J3370; J3480; J3490; J7030; J7040; Q9967

== ENCOUNTER → 2018-02-17 | Outpatient (CLI) | payer OTHER ==
[~2018-02-17] MED LIST changes: +ALPR-412 PO; -ALPR2TAB7 PO; +ATEN25TA PO; -ATEN50TA PO; +AUD IH; -CARB1TAB20 PO; +CILO50TA PO; +CIPR-279 PO; +CLOP75TA32 PO; -CLOPIDOGREL; -CYAN100099 PO; +CYCL5.5D OP; -ESOM40CA PO; +ESOM40CA54 PO; +HYDR-4068 PO; +ICOS1CAP PO; +IOHEXOL-350 75 ML VIAL IV ONE; +MIRA25TA PO; -MONT10TA24 PO; +OLOP2.5D5 OP; -PEPTO BISMAL; -PREG100C PO; -SAW450CA7 PO; +SUCR1TAB2 PO; +TAMS0.4C32 PO; -TERB250T51 PO; +TRAM50TA4 PO; -VESCEPA; -[UNRECOGNIZED DRUG - OTHER]; -[UNRECOGNIZED DRUG - OTHER]; -benzonatate; -donepezil; -duloxetine; -fluconazole; -hydrocodone; -loratadine; -meloxicam; -paroxetine; -rena vite; -tamsulosin; -vitamin d3
== END | disposition home or self-care (01) ==
LOC: RAH 08:59
PROVIDERS: ATTEND Internal Medicine
DX: I26.99 Other pulmonary embolism without acute cor pulmonale (principal); R79.1 Abnormal coagulation profile; J84.10 Pulmonary fibrosis, unspecified; M47.895 Other spondylosis, thoracolumbar region; I51.7 Cardiomegaly
CPT/HCPCS: 71275; Q9967

== ENCOUNTER → 2018-08-31 | Outpatient (CLI) | payer MEDICARE ==
[~2018-08-31] MED LIST changes: -IOHEXOL-350 75 ML VIAL IV ONE
== END | disposition home or self-care (01) ==
LOC: OIH 10:45
PROVIDERS: ATTEND Internal Medicine
DX: R07.89 Other chest pain (principal)
CPT/HCPCS: 71046

== ENCOUNTER → 2020-02-07 | Outpatient (CLI) | payer MEDICARE | END | disposition home or self-care (01) | LOC: OIH 10:53 | PROVIDERS: ATTEND Internal Medicine | DX: I70.0 Atherosclerosis of aorta (principal); R07.9 Chest pain, unspecified; I10 Essential (primary) hypertension | CPT/HCPCS: 71046 ==

== ENCOUNTER → 2023-04-23 | Outpatient (CLI) | payer MEDICARE ==
[~2023-04-23] MED LIST changes: -CILO50TA PO; +CILO50TA2 PO
== END | disposition home or self-care (01) ==
LOC: RAH 12:34
PROVIDERS: ATTEND Internal Medicine
DX: S33.8XXA Sprain of other parts of lumbar spine and pelvis, initial encounter (principal); M53.3 Sacrococcygeal disorders, not elsewhere classified; M54.16 Radiculopathy, lumbar region; M47.816 Spondylosis without myelopathy or radiculopathy, lumbar region; X58.XXXA Exposure to other specified factors, initial encounter; Y93.89 Activity, other specified; Y92.89 Other specified places as the place of occurrence of the external cause; Y99.8 Other external cause status
CPT/HCPCS: 72100; 72220

== ENCOUNTER → 2023-06-04 | Outpatient (CLI) | payer MEDICARE | END | disposition home or self-care (01) | LOC: RAH 13:16 | PROVIDERS: ATTEND Internal Medicine Gastroenterology | DX: R13.12 Dysphagia, oropharyngeal phase (principal); R63.30 Feeding difficulties, unspecified | CPT/HCPCS: 74230; 92611 ==

== ENCOUNTER 2023-06-10 16:58 | Emergency (ER) | payer MEDICARE ==
[~2023-06-10] VITALS: Ht 165.1 cm; Wt 63.5 kg
[2023-06-10 18:09] LABS: BASOPHILS # (AUTO) 0.03 K/uL (0.00-0.20); BASOPHILS % (AUTO) 0.3 % (0.0-5.0); EOSINOPHILS # (AUTO) 0.06 K/uL (0.00-0.70); EOSINOPHILS % (AUTO) 0.6 % (0.0-8.0); HEMATOCRIT 42.8 % (42-54); IMMATURE GRANULOCYTE ABSOLUTE 0.05 K/uL (0-1); LYMPHOCYTES # (AUTO) 2.3 K/uL (1.0-4.8); LYMPHOCYTES % (AUTO) 20.9 % (21.0-51.0); MEAN CORPUSCULAR HEMOGLOBIN 27.5 pg (27.0-33.0); MEAN CORPUSCULAR HGB CONC 32.7 g/dL (32.0-36.0); MEAN CORPUSCULAR VOLUME 83.9 fL (79-99); MONOCYTES # (AUTO) 0.7 K/uL (0.1-1.0); NEUTROPHILS # (AUTO) 7.8 K/uL (1.8-7.7); NEUTROPHILS % (AUTO) 71.7 % (40.0-77.0); PLATELET COUNT (AUTO) 266 K/uL (130-400); RED CELL DISTRIBUTION WIDTH 16.6 % (11.0-15.5); WHITE BLOOD COUNT (AUTO) 10.9 K/uL (4.8-10.8)
[2023-06-10 18:17] LABS: POTASSIUM 4.2 mmol/L (3.5-5.1)
[2023-06-10 18:22] LABS: ALBUMIN 3.1 g/dL (3.5-5.0); BILIRUBIN,TOTAL 0.6 mg/dL (0.2-1.0); TOTAL PROTEIN, SERUM 6.8 g/dL (6.0-8.3)
[2023-06-10 21:00] VITALS: BP 128/66; PULSE 100; RESP 16; O2SAT 100
== END 2023-06-10 21:12 | disposition home or self-care (01) ==
LOC: EDH 16:58
DX: S70.02XA Contusion of left hip, initial encounter (principal); S70.01XA Contusion of right hip, initial encounter; E11.9 Type 2 diabetes mellitus without complications; E78.00 Pure hypercholesterolemia, unspecified; I10 Essential (primary) hypertension; Z79.02 Long term (current) use of antithrombotics/antiplatelets; Z79.621 Long term (current) use of calcineurin inhibitor; Z79.899 Other long term (current) drug therapy; W18.39XA Other fall on same level, initial encounter; Y93.89 Activity, other specified; Y92.89 Other specified places as the place of occurrence of the external cause; Y99.8 Other external cause status
CPT/HCPCS: 36415; 70450; 71045; 72125; 72170; 80053; 85025

== ENCOUNTER → 2024-05-19 | Outpatient (CLI) | payer MEDICARE ==
[~2024-05-19] MED LIST changes: -ESOM40CA54 PO; +ESOM40CA66 PO
== END | disposition home or self-care (01) ==
LOC: SHCH 13:25
PROVIDERS: ATTEND Student in an Organized Health Care Education/Training Program
DX: R06.02 Shortness of breath (principal)
CPT/HCPCS: 93306

== ENCOUNTER → 2024-08-05 | Outpatient (CLI) | payer MEDICARE | END | disposition home or self-care (01) | LOC: SHCH 09:18 | PROVIDERS: ATTEND Student in an Organized Health Care Education/Training Program | DX: I70.0 Atherosclerosis of aorta (principal); I65.23 Occlusion and stenosis of bilateral carotid arteries; I71.40 Abdominal aortic aneurysm, without rupture, unspecified; R09.89 Other specified symptoms and signs involving the circulatory and respiratory systems | CPT/HCPCS: 93880; 93978 ==